=== PATIENT | female | born 1950 | race Caucasian/White ===

== ENCOUNTER → 2022-12-05 09:18 | Outpatient (CLI) | payer MEDICARE, SELFPAY ==
--- NOTE | 2022-12-05 09:20 | DI.US.S_ITS ---
PROCEDURE: US EXTREMITY NONVASC LOWER LT INDICATIONS: MASS IN LEFT MEDIAL THIGH R/O SOLID TUMOR VASCULAR VS CYST TECHNIQUE: Real-time scanning was performed of the left thigh , with image documentation. COMPARISON: None. FINDINGS: Imaging of the area of palpable lump in the medial left thigh was performed with a high megahertz linear transducer. No solid lesions were identified. No cysts identified. IMPRESSION: No mass identified corresponding to the subjective palpable lump. Dictated by: William Byrne M.D. on 12/05/2022 at 11:07 Approved by: William Byrne M.D. on 12/05/2022 at 11:09
== END ==
PROVIDERS: PCP Pediatrics; Referring Provider Pediatrics; Visit Provider Pediatrics
DX: R22.42 Localized swelling, mass and lump, left lower limb (principal)
CPT/HCPCS: 76882